=== PATIENT | female | born 2000 | race Caucasian/White ===

== ENCOUNTER 2020-07-13 10:09 | Emergency (ER) | payer OTHER, SELFPAY ==
[2020-07-13 10:32] VITALS: BP 144/91; PULSE 73; RESP 18; TEMP 36.7; O2SAT 96; BMI 22.8
[2020-07-13 11:00] LABS: UTC Strep Screen (Rapid) Negative (Negative)
--- NOTE | 2020-07-13 11:11 | HMH.EDUTC ---
[facility] [place] Impression: Viral syndrome Pharyngitis Qualifiers: Pharyngitis/tonsillitis etiology: unspecified etiology Qualified Code(s): J02.9 - Acute pharyngitis, unspecified Disposition: Home, Self-Care Condition on Discharge: Good Instructions: DI for Pharyngitis/Tonsillopharyngitis -- Adult, Preventing the Spread of Coronavirus Discharge Instructions Additional Instructions: Drink plenty of fluids. Take tylenol or ibuprofen for pain or fever. Take the medications as directed. Follow up with your regular doctor. GO TO THE ER FOR ANY WORSENING SYMPTOMS FOLLOW THE DIRECTIONS ON THE COVID-19 HAND OUT THAT WE GAVE YOU REGARDING SELF-ISOLATION UNTIL YOU KNOW YOUR COVID-19 RESULTS Prescriptions: Ondansetron [Zofran 4mg ODT] 4 mg PO Q8HP PRN #20 tab.rapdis PRN Reason: Nausea Transmission Status: Received by [facility] Azithromycin [Z-Ryan 250mg Tab*] 250 mg PO UD DOSE PK #6 tab Transmission Status: Received by [facility] Referrals: Mayra Mcnulty APRN [Primary Care Provider] - Forms: Work/School Release Time of Disposition: 11:15 Medical Decision Making - Medical Records Medical records reviewed: No: I reviewed the patient's medical records. - Alistair Inquiry Pt receiving controlled substance: No Vital Signs: 07/13/20 10:32 07/13/20 11:23 Temperature 98.1 F 98.1 F Temperature Source Oral Oral Pulse Rate 73 Pulse Rate [Radial] 73 Respiratory Rate 18 18 Blood Pressure 144/91 H Blood Pressure [Right Arm] 144/91 H Blood Pressure Mean [Right Arm] 108 Blood Pressure Source Automatic Cuff Blood Pressure Source [Right Arm] Automatic Cuff Blood Pressure Position Sitting Blood Pressure Position [Right Arm] Sitting 02 Sat by Pulse Oximetry 96 Oxygen Delivery Method Room Air Room Air - Lab Data Lab results reviewed: Yes: I reviewed the patient's lab results. Lab Results 07/13/20 10:46: Strep Scn Rapid Clinic Negative Orders (Tests/Meds): ORDERS Category Date Time Status Covid-19 Nasal PCR Sendout Dk Routine Lab 07/13/20 10:50 Received Strep Screen Confirmation Stat Micro 07/13/20 10:46 [place] [facility] [place] - General Stated complaint: sore throat,aches,cough,headache Time Seen by Provider: 07/13/20 10:35 Mode of Arrival: Ambulatory Source of Information: Patient Limitations: No Limitations Description of Symptoms (Recalled from Triage Doc. by RN): SORE THROAT, BODY ACHES, VOMITING SINCE YESTERDAY HEENT Symptoms (Recalled from RN notes): Yes Resp Symptoms (Recalled from RN notes): No Skin Symptoms (Recalled from RN notes): No MS Symptoms (Recalled from RN notes): No Functional Status (Recalled from RN notes): WNL - History of Present Illness Provider Complaint: She states that since yesterday she began having chest congestion, n/v and feeling bad. 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 - Related Data Previous Rx's Medication Instructions Recorded Azithromycin [Z-Ryan 250mg Tab*] 250 mg PO UD DOSE PK #6 tab 07/13/20 Ondansetron [Zofran 4mg ODT] 4 mg PO Q8HP PRN #20 tab.rapdis 07/13/20 Allergies Allergy/AdvReac Type Severity Reaction Status Date / Time No Known Allergies Allergy Verified 07/13/20 10:35 - Worker's Comp Is this a Worker's Comp case?: No [facility] History - Hepatitis A Screen Drug use history?: No High risk sexual behaviors?: No History of sexually transmitted infection?: No Currently employed?: No Childcare worker?: No Do you have indoor plumbing?: Yes Do you have electricity?: Yes Attestation statement:: This patient has been screened for Hepatitis A risk factors. I have reviewed the patient's past medical history: Yes - Social History Alcohol Intake: never Occupational Status: employed Housing: house ROS Obtained: Yes All systems reviewed & no additional complaints - Constitutional Constitutional: Denies chills, Denies fever(s), Reports p
[2020-07-13 11:23] VITALS: BP 144/91; PULSE 73; RESP 18; TEMP 36.7; O2SAT 96
[2020-07-14 14:00] LABS: Covid-19 Nasal PCR Sendout Lex NOT DETECTED
== END 2020-07-13 11:29 | disposition home or self-care (01) ==
PROVIDERS: Emergency Provider Nurse Practitioner Family; PCP Nurse Practitioner Family
DX: B34.9 Viral infection, unspecified (principal); J02.9 Acute pharyngitis, unspecified; Z20.828 Contact with and (suspected) exposure to other viral communicable diseases
CPT/HCPCS: 87880; 99202; U0004